=== PATIENT | male | born 1960 ===

== ENCOUNTER 2017-03-21 10:23 | Observation (INO) | payer MEDICARE, MEDICAID ==
[2017-03-21 11:25] LABS: ADD MANUAL DIFF? NO
[2017-03-21 11:28] LABS: BASO # 0.01 K/mm3 (0.0-2.0); BASO % 0.3 % (0.0-3.0); EOS # 0.1 (0.0-0.7); EOS % 4.3 % (1.5-5.0); GRAN # 2.13 (1.4-6.5); GRAN % 65.1 % (50.0-68.0); HEMATOCRIT 24.3 % (42.0-52.0); LYMPH # 0.7 (1.2-3.4); LYMPH % 21.7 % (22.0-35.0); MEAN CORPUSCULAR HEMOGLOBIN 30.4 pg (25.0-35.0); MEAN CORPUSCULAR HGB CONC 33.7 g/dl (31.0-37.0); MEAN PLATELET VOLUME 11.4 fl (7.0-11.0); MONO # 0.3 (0.1-0.6); MONO % 8.6 % (1.0-6.0); PLATELET COUNT 48 10^3/uL (120.0-450.0); RED CELL DISTRIBUTION WIDTH 15.3 % (11.5-14.5); WHITE BLOOD COUNT 3.3 10^3/ul (4.5-11.0)
--- NOTE | 2017-03-21 11:32 | ED PDOC ---
Arrival/HPI - General Chief Complaint: Lower Extremity Problem/Injury Time Seen by Provider: 03/21/17 10:24 Historian: Other (daughter) - History of Present Illness Narrative History of Present Illness (Text): 03/21/17 11:30 A 57 year old male, whose past medical history includes hypertension and lower extremity swelling (Lasix), presents to the emergency department complaining of bilateral lower extremity swelling. Patient's daughter, historian, reports that patient's legs have been swollen more than usual in the past month. Patient also notes complaining of slight dyspnea on exertion. Patient denies any shortness of breath, chest pain or any other complaints at this time. Time/Duration: Other (month) Symptom Onset: Sudden Symptom Course: Unchanged Quality: Other (swelling) Activities at Onset: Rest Modifying Factors (Text): none Context: Home Associated Symptoms (Text): dyspnea on exertion Past Medical History - Provider Review Nursing Documentation Reviewed: Yes - Gastrointestinal Other/Comment: liver problem - Psychiatric Hx Substance Use: No Family/Social History - Physician Review Nursing Documentation Reviewed: Yes Family/Social History: No Known Family HX Smoking Status: Unknown If Ever Smoked Hx Alcohol Use: Yes Frequency of alcohol use: Socially Hx Substance Use: No Allergies/Home Meds Allergies/Adverse Reactions: Allergies No Known Allergies Allergy (Verified 03/21/17 10:38) Home Medications: Home Meds Medication Instructions Recorded Confirmed Furosemide [Lasix] 40 mg PO DAILY 03/21/17 03/21/17 Review of Systems - Physician Review All systems were reviewed & negative as marked: Yes Physical Exam - Physical Exam Narrative Physical Exam (Text): 03/21/17 12:27- Review of Systems Constitutional: Normal. absent: Fatigue, Weight Change, Fevers Eyes: Normal ENT: Normal Respiratory: Normal absent: SOB, Cough, Sputum Cardiovascular: Present: dyspnea on exertion absent: Chest pain, Palpitations, Syncope Gastrointestinal: Normal absent: Abdominal pain, Diarrhea, Nausea, Vomiting Genitourinary: Normal. absent: Dysuria, Frequency, Hematuria Musculoskeletal: Present: Lower extremity swelling absent: Arthralgias, Back Pain, Neck Pain Skin: Normal Neurological: Normal absent: Focal Weakness Endocrine: Normal Hemo/Lymphatic: Normal Psychiatric: Normal - Physical exam Patient appears age appropriate, speaking full sentences without difficulty - Systems Exam Head: Present: Atraumatic, Normocephalic Pupils: Present: PERRL Extraocular Muscles: Present: EOMI Conjunctiva: Present: Normal Mouth: Present: Moist Mucous Membranes Neck: Present: Normal Range of Motion. No: MIDLINE TENDERNESS, Paraspinal Tenderness Respiratory/Chest: Present: Clear to Auscultation, Good Air Exchange. No: Respiratory Distress, Accessory Muscle Use, Tachypneic Cardiovascular: Present: Regular Rate and Rhythm, Normal S1, S2, Peripheral Pulses Present. No: Murmurs Abdomen: Present: Normal Bowel Sounds, No: Tenderness, Peritoneal Signs, Rebound, Guarding, Distention Back: Present: Normal Inspection. No: Midline Tenderness, Paraspinal Tenderness Upper Extremity: Present: Normal Inspection. No: Cyanosis, Edema Lower Extremity: Present: pitting edema bilaterally Neurological: Present: GCS=15, Speech Normal, cranial nerves II through XII fully intact with no cerebellar abnormality, neuro-sensory fully intact. No focal neurological deficits. Skin: Present: Warm, Dry, Normal Color. No: Rashes Lymphatic: Present: OX3, NI, NC Psychiatric: Present: Alert, Oriented x 3, Normal Insight, Normal Concentration Vital Signs Reviewed: Yes Vital Signs Temp Pulse Resp BP Pulse Ox 03/21/17 12:23 88 18 127/63 100 03/21/17 10:33 98.8 F 88 20 126/71 99 Temperature: Afebrile Blood Pressure: Normal Pulse: Regular Respiratory Rate: Normal Appearance: Positive for: Well-Appearing, Non-Toxic, Comfortable Pain Distress: None Mental Status: Positive for: Alert and Oriented X 3 Medical Decision Making ED Course and Treatment: 03/21/17 11:31 Impression: A 57 year old male with lower extremity swelling and slight dyspnea on exertion. On physical exam, lower extremity pitting edema bilaterally. Differential Diagnosis include but are not limited to: liver disease vs. renal dysfunction vs. CHF vs. peripheral vascular disease vs. DVT Plan: -- EKG -- chest xray -- US lower extremity vein bilat -- Urinalysis -- labs -- Reassess and disposition Progress Notes: EKG: Ordered, reviewed, and independently interpreted the EKG. Rate : BPM Rhythm : NSR Interpretation : No ST-segment elevations or depressions, no T-wave inversions, normal intervals. Comparison : No previous EKG for comparison. Chest xray: Cardiomegaly, no obvious infiltrates or effusions. Interpreted by me. US lower extremity: Negative for DVT bilaterally as per preliminary career technical counselor result 03/21/17 13:23 Patient's INR elevated, not any anticoagulate. Patients daughter reports that patient has a history of alcohol use in the past. Patient's hemoglobin and platelets also low. No indication for acute transfusion at this time Patient agrees to be admitted into the hospital for further workup Discussed with and signed out to Dr. Lobo Patient's daughter translating encounter without difficulty. - Lab Interpretations Lab Results: 03/21/17 11:20 03/21/17 11:20 Lab Results 03/21/17 11:20: Sodium 133, Potassium 3.4 L, Chloride 98, Carbon Dioxide 30, Anion Gap 8 L, BUN 10, Creatinine 0.8, Est GFR ( Amer) > 60, Est GFR (Non -Af Amer) > 60, Random Glucose 110, Calcium 7.6 L, Total Bilirubin 3.6 H, AST 54 , ALT 35, Alkaline Phosphatase 87, NT-Pro-B Natriuret Pep 297, Total Protein 7.6 , Albumin 2.2 L, Globulin 5.3, Albumin/Globulin Ratio 0.4 L 03/21/17 11:20: PT 19.2 H, INR 1.78 H, APTT 34.9 H 03/21/17 11:20: WBC 3.3 L, RBC 2.70 L, Hgb 8.2 L, Hct 24.3 L, MCV 90.0, MCH 30.4 , MCHC 33.7, RDW 15.3 H, Plt Count 48 L*, MPV 11.4 H, Gran % 65.1, Lymph % (Auto ) 21.7 L, Vernon % (Auto) 8.6 H, Eos % (Auto) 4.3, Baso % (Auto) 0.3, Gran # 2.13 , Lymph # 0.7 L, Vernon # 0.3, Eos # 0.1, Baso # 0.01 I have reviewed the lab results: Yes - RAD Interpretation Radiology Orders: 03/21/17 10:54 CHEST PORTABLE [RAD] Stat DUPLEX LOWER EXTRM VEIN BILAT [US] Stat - EKG Interpretation Interpreted by ED Physician: Yes Type: 12 lead EKG - Scribe Statement The provider has reviewed the documentation as recorded by the Scribe Bebeto Carl All medical record entries made by the Scribe were at my direction and personally dictated by me. I have reviewed the chart and agree that the record accurately reflects my personal performance of the history, physical exam, medical decision making, and the department course for this patient. I have also personally directed, reviewed, and agree with the discharge instructions and disposition. Disposition/Present on Arrival - Present on Arrival Any Indicators Present on Arrival: No History of DVT/PE: No History of Uncontrolled Diabetes: No Urinary Catheter: No History of Decub. Ulcer: No History Surgical Site Infection Following: None - Disposition Have Diagnosis and Disposition been Completed?: Yes Diagnosis: Anemia, Thrombocytopenia, Coagulopathy Disposition: HOSPITALIZED Disposition Time: 13:25 Patient Plan: Admission Condition: FAIR
[2017-03-21 11:38] LABS: ALB/GLOB RATIO 0.4 (1.1-1.8); ALKALINE PHOSPHATASE 87 U/L (38-133); ALT/SGPT 35 U/L (7-56); AST/SGOT 54 U/L (15-59); BILIRUBIN,TOTAL 3.6 mg/dL (0.2-1.3); BLOOD UREA NITROGEN 10 mg/dL (7-21); CALCIUM 7.6 mg/dL (8.4-10.5); CARBON DIOXIDE 30 mmol/L (21-33); CHLORIDE 98 mmol/L (98-107); GFR AFRICAN-AMERICAN > 60; GLUCOSE,RANDOM 110 mg/dL (70-110); INR 1.78 (0.93-1.08); PARTIAL THROMBOPLASTIN TIME 34.9 Seconds (23.7-30.8); POTASSIUM 3.4 mmol/L (3.6-5.0); SODIUM 133 mmol/L (132-148); TOTAL PROTEIN 7.6 g/dL (5.8-8.3)
--- NOTE | 2017-03-21 13:31 | RAD ---
HISTORY: cough COMPARISON: No prior. FINDINGS: LUNGS: No active pulmonary disease. PLEURA: No significant pleural effusion identified, no pneumothorax apparent. CARDIOVASCULAR: Normal. OSSEOUS STRUCTURES: No significant abnormalities. VISUALIZED UPPER ABDOMEN: Normal. OTHER FINDINGS: None. IMPRESSION: No active disease.
[2017-03-21] MEDS ORDERED: Potassium Chloride 20 mEq ER Tab PO STA (14:06)
--- NOTE | 2017-03-21 14:29 | US ---
HISTORY: r/o cirrhosis COMPARISON: None. TECHNIQUE: Grayscale imaging was performed. FINDINGS: LIVER: Measures 18.7 cm. There is mild diffuse increased echogenicity in the liver parenchyma and nodular contour. . No mass. No intrahepatic bile duct dilatation. GALLBLADDER: There are multiple gallstones. No wall thickening, pericholecystic fluid or positive sonographic Sue's sign. COMMON BILE DUCT: Measures 5.2 mm. No stones. No dilatation. PANCREAS: Obscured by excessive bowel gas. RIGHT KIDNEY: Measures 9.8cm. Normal echogenicity. No calculus, mass, or hydronephrosis. LEFT KIDNEY: Measures 11.6cm. Normal echogenicity. No calculus, mass, or hydronephrosis. SPLEEN: There is severe splenomegaly. The spleen measures 18.3 cm. AORTA: No aneurysmal dilatation. IVC: Unremarkable. OTHER FINDINGS: There is moderate perihepatic ascites. IMPRESSION: Cirrhosis of liver, severe splenomegaly and moderate perihepatic ascites. Cholelithiasis.
--- NOTE | 2017-03-21 14:43 | CP.PCM.HP ---
<LizBlanco - Last Filed: 03/21/17 14:33> History of Present Illness - History of Present Illness History of Present Illness: 57 M with pmh of ETOH abuse presents with b/l leg swelling. History taken from patient with her daughter at bedside. Patient states that his leg swelling first started 2 years ago. He states that at the time he was also diagnose with some type of liver disease. Now in the past 1.5-2 months he states that his leg swelling as gotten progressively worse. He admits to being short of breath on exertion but states that he is still able to walk a few blocks with out being short of breath. Patient also c/o some abdominal pain that has been going on for the past few weeks. Pt also c/o nose bleeds that has been going on at nights for the past 6 weeks. He denies any nausea, vomiting or diarrhea. He denies any chest pain or palpitations at this time. He denies any headaches, dizziness, visual changes, f/c, sob, cp, urinary or bm changes. PMH: ETOH abuse, liver disease? PSH: denies All: NKA Med: Lasix 40mg PO daily SH: Denies smoking, denies drugs, admits to drinking heavily, states that he slowed down starting 2 years ago and has completely stoped once his symptoms started 2 months ago. FH: HTN runs in the family Present on Admission - Present on Admission Any Indicators Present on Admission: No Review of Systems - Review of Systems All systems: reviewed and no additional remarkable complaints except (HPI) Past Patient History - Past Social History Smoking Status: Never Smoked Alcohol: > 2 Drinks/Day Drugs: Denies - GASTROINTESTINAL Other/Comment: liver problem - PSYCHIATRIC Hx Substance Use: No Meds Allergies/Adverse Reactions: Allergies Allergy/AdvReac Type Severity Reaction Status Date / Time No Known Allergies Allergy Verified 03/21/17 10:38 Physical Exam - Constitutional Appears: No Acute Distress - Head Exam Head Exam: ATRAUMATIC, NORMAL INSPECTION, NORMOCEPHALIC - Eye Exam Eye Exam: Conjunctival injection - ENT Exam ENT Exam: Mucous Membranes Moist, Normal Exam - Respiratory Exam Respiratory Exam: Clear to Auscultation Bilateral, NORMAL BREATHING PATTERN. absent: Rales, Wheezes - Cardiovascular Exam Cardiovascular Exam: REGULAR RHYTHM, RRR, +S1, +S2 - GI/Abdominal Exam GI & Abdominal Exam: Distended (Mild ), Soft. absent: Tenderness - Extremities Exam Extremities exam: Positive for: pedal edema (3+ pitting edema in b/l lower ext ) . Negative for: calf tenderness - Back Exam Back exam: absent: vertebral tenderness - Neurological Exam Neurological exam: Alert, Normal Gait, Oriented x3 - Psychiatric Exam Psychiatric exam: Normal Affect, Normal Mood - Skin Skin Exam: Dry, Intact, Normal Color, Warm Results - Vital Signs Recent Vital Signs: Last Vital Signs Temp 98.8 F 03/21/17 10:33 Pulse 88 03/21/17 12:23 Resp 18 03/21/17 12:23 BP 127/63 03/21/17 12:23 Pulse Ox 100 03/21/17 12:23 - Labs Result Diagrams: 03/21/17 11:20 03/21/17 11:20 Labs: Laboratory Results - last 24 hr 03/21/17 03/21/17 03/21/17 11:20 11:20 11:20 WBC 3.3 L RBC 2.70 L Hgb 8.2 L Hct 24.3 L MCV 90.0 MCH 30.4 MCHC 33.7 RDW 15.3 H Plt Count 48 L* MPV 11.4 H Gran % 65.1 Lymph % (Auto) 21.7 L Sharp % (Auto) 8.6 H Eos % (Auto) 4.3 Baso % (Auto) 0.3 Gran # 2.13 Lymph # 0.7 L Sharp # 0.3 Eos # 0.1 Baso # 0.01 PT 19.2 H INR 1.78 H APTT 34.9 H Sodium 133 Potassium 3.4 L Chloride 98 Carbon Dioxide 30 Anion Gap 8 L BUN 10 Creatinine 0.8 Est GFR ( Amer) > 60 Est GFR (Non-Af Amer) > 60 Random Glucose 110 Calcium 7.6 L Total Bilirubin 3.6 H AST 54 ALT 35 Alkaline Phosphatase 87 NT-Pro-B Natriuret Pep 297 Total Protein 7.6 Albumin 2.2 L Globulin 5.3 Albumin/Globulin Ratio 0.4 L Assessment & Plan - Assessment and Plan (Free Text) Assessment: 57 M with pmh significant for of ETOH abuse presents with b/l leg swelling likely 2/2 Liver failure vs unlikely cardiac related. 1. B/l Leg edema 2/2 Liver failure - INR 1.78, PT 19.2, PTT 34.9; Platelet of 44, T bili 3.6, Albumin 2.2 - Pro BNP normal 297 - Lasix 40mg IVP BID - F/u ext US - F/u Abdominal US - F/u Echo - F/u GI consult - Dr Russo for recs - Daily CBC, CBC, INR - F/u hepatitis and HIV profile - F/u Urine drug screen 2. Hypokalemia - K is 3.4 - KCl 40mg PO ordered - Will replete as needed 3. Anemia - H/H 8.2/24.3 no active bleeding - No transfusion indicated at this time - F/u anemia work up of Iron, TIBC, Ferritin, Folate, and Vit B12 4. GI/DVT ppx - Pepcid and SCDs Case and plan was seen reviewed and discussed in detail with Dr Lobo. <Jose Lobo - Last Filed: 03/22/17 14:31> Results - Vital Signs Recent Vital Signs: Last Vital Signs Temp 98 F 03/22/17 07:46 Pulse 89 03/22/17 07:46 Resp 20 03/22/17 07:46 BP 120/60 03/22/17 09:18 Pulse Ox 98 03/22/17 07:46 - Labs Result Diagrams: 03/22/17 06:30 03/22/17 06:30 Labs: Laboratory Results - last 24 hr 03/21/17 03/21/17 03/21/17 15:00 15:00 15:00 WBC RBC Hgb Hct MCV MCH MCHC RDW Plt Count Manual Plt Count MPV Gran % Lymph % (Auto) Sharp % (Auto) Eos % (Auto) Baso % (Auto) Gran # Lymph # Sharp # Eos # Baso # PT INR Sodium Potassium Chloride Carbon Dioxide Anion Gap BUN Creatinine Est GFR ( Amer) Est GFR (Non-Af Amer) Random Glucose Calcium Iron 96 TIBC 251 L % Saturation 38 Ferritin Total Bilirubin AST ALT Alkaline Phosphatase Total Protein Albumin Globulin Albumin/Globulin Ratio Vitamin B12 Folate Urine Color Urine Appearance Urine pH Ur Specific [place] Urine Protein Urine Glucose (UA) Urine Ketones Urine Blood Urine Nitrate Urine Bilirubin Urine Urobilinogen Ur Leukocyte Esterase Urine RBC Urine WBC Ur Epithelial Cells Urine Bacteria Stool Occult Blood Urine Opiates Screen Urine Methadone Screen Ur Barbiturates Screen Ur Phencyclidine Scrn Ur Amphetamines Screen U Benzodiazepines Scrn U Oth Cocaine Metabols U Cannabinoids Screen Hepatitis A IgM Ab Negative Hep Bs Antigen Negative Hep B Core IgM Ab Negative Hepatitis C Antibody Negative HIV 1&2 Ag/Ab, 4th Gen Nonreactive Blood Type Blood Type Confirm Antibody Screen BBK History Checked 03/21/17 03/21/17 03/22/17 15:00 15:20 06:30 WBC 2.7 L* RBC 2.66 L Hgb 8.1 L Hct 24.1 L MCV 90.6 MCH 30.5 MCHC 33.6 RDW 15.2 H Plt Count 43 L* Manual Plt Count MPV 10.0 Gran % 64.9 Lymph % (Auto) 23.3 Sharp % (Auto) 8.1 H Eos % (Auto) 3.7 Baso % (Auto) 0.0 Gran # 1.75 Lymph # 0.6 L Sharp # 0.2 Eos # 0.1 Baso # 0.00 PT INR Sodium Potassium Chloride Carbon Dioxide Anion Gap BUN Creatinine Est GFR ( Amer) Est GFR (Non-Af Amer) Random Glucose Calcium Iron TIBC % Saturation Ferritin 311.0 Total Bilirubin AST ALT Alkaline Phosphatase Total Protein Albumin Globulin Albumin/Globulin Ratio Vitamin B12 845 Folate 10.5 Urine Color Yellow Urine Appearance Clear Urine pH 6.0 Ur Specific [place] 1.020 Urine Protein Negative Urine Glucose (UA) Negative Urine Ketones Negative Urine Blood Large H Urine Nitrate Negative Urine Bilirubin Negative Urine Urobilinogen 2.0 H Ur Leukocyte Esterase Negative Urine RBC 15 - 20 Urine WBC 0 - 2 Ur Epithelial Cells 0 - 2 Urine Bacteria Small Stool Occult Blood Urine Opiates Screen Urine Methadone Screen Ur Barbiturates Screen Ur Phencyclidine Scrn Ur Amphetamines Screen U Benzodiazepines Scrn U Oth Cocaine Metabols U Cannabinoids Screen Hepatitis A IgM Ab Hep Bs Antigen Hep B Core IgM Ab Hepatitis C Antibody HIV 1&2 Ag/Ab, 4th Gen Blood Type Blood Type Confirm Antibody Screen BBK History Checked 03/22/17 03/22/17 03/22/17 06:30 06:30 06:30 WBC RBC Hgb Hct MCV MCH MCHC RDW Plt Count Manual Plt Count 60 L* MPV Gran % Lymph % (Auto) Sharp % (Auto) Eos % (Auto) Baso % (Auto) Gran # Lymph # Sharp # Eos # Baso # PT 19.4 H INR 1.80 H Sodium 137 Potassium 3.4 L Chloride 102 Carbon Dioxide 30 Anion Gap 8 L BUN 10 Creatinine 0.8 Est GFR ( Amer) > 60 Est GFR (Non-Af Amer) > 60 Random Glucose 84 Calcium 7.3 L Iron TIBC % Saturation Ferritin Total Bilirubin 3.6 H AST 55 ALT 38 Alkaline Phosphatase 84 Total Protein 7.0 Albumin 2.1 L Globulin 4.9 Albumin/Globulin Ratio 0.4 L Vitamin B12 Folate Urine Color Urine Appearance Urine pH Ur Specific [place] Urine Protein Urine Glucose (UA) Urine Ketones Urine Blood Urine Nitrate Urine Bilirubin Urine Urobilinogen Ur Leukocyte Esterase Urine RBC Urine WBC Ur Epithelial Cells Urine Bacteria Stool Occult Blood Urine Opiates Screen Urine Methadone Screen Ur Barbiturates Screen Ur Phencyclidine Scrn Ur Amphetamines Screen U Benzodiazepines Scrn U Oth Cocaine Metabols U Cannabinoids Screen Hepatitis A IgM Ab Hep Bs Antigen Hep B Core IgM Ab Hepatitis C Antibody HIV 1&2 Ag/Ab, 4th Gen Blood Type Blood Type Confirm Antibody Screen BBK History Checked 03/22/17 03/22/17 03/22/17 09:00 10:53 10:56 WBC RBC Hgb Hct MCV MCH MCHC RDW Plt Count Manual Plt Count MPV Gran % Lymph % (Auto) Sharp % (Auto) Eos % (Auto) Baso % (Auto) Gran # Lymph # Sharp # Eos # Baso # PT INR Sodium Potassium Chloride Carbon Dioxide Anion Gap BUN Creatinine Est GFR ( Amer) Est GFR (Non-Af Amer) Random Glucose Calcium Iron TIBC % Saturation Ferritin Total Bilirubin AST ALT Alkaline Phosphatase Total Protein Albumin Globulin Albumin/Globulin Ratio Vitamin B12 Folate Urine Color Urine Appearance Urine pH Ur Specific [place] Urine Protein Urine Glucose (UA) Urine Ketones Urine Blood Urine Nitrate Urine Bilirubin Urine Urobilinogen Ur Leukocyte Esterase Urine RBC Urine WBC Ur Epithelial Cells Urine Bacteria Stool Occult Blood Positive H Urine Opiates Screen Negative Urine Methadone Screen Negative Ur Barbiturates Screen Negative Ur Phencyclidine Scrn Negative Ur Amphetamines Screen Negative U Benzodiazepines Scrn Negative U Oth Cocaine Metabols Negative U Cannabinoids Screen Negative Hepatitis A IgM Ab Hep Bs Antigen Hep B Core IgM Ab Hepatitis C Antibody HIV 1&2 Ag/Ab, 4th Gen Blood Type A POSITIVE Blood Type Confirm Antibody Screen Negative BBK History Checked No verified bt 03/22/17 12:49 WBC RBC Hgb Hct MCV MCH MCHC RDW Plt Count Manual Plt Count MPV Gran % Lymph % (Auto) Sharp % (Auto) Eos % (Auto) Baso % (Auto) Gran # Lymph # Sharp # Eos # Baso # PT INR Sodium Potassium Chloride Carbon Dioxide Anion Gap BUN Creatinine Est GFR ( Amer) Est GFR (Non-Af Amer) Random Glucose Calcium Iron TIBC % Saturation Ferritin Total Bilirubin AST ALT Alkaline Phosphatase Total Protein Albumin Globulin Albumin/Globulin Ratio Vitamin B12 Folate Urine Color Urine Appearance Urine pH Ur Specific [place] Urine Protein Urine Glucose (UA) Urine Ketones Urine Blood Urine Nitrate Urine Bilirubin Urine Urobilinogen Ur Leukocyte Esterase Urine RBC Urine WBC Ur Epithelial Cells Urine Bacteria Stool Occult Blood Urine Opiates Screen Urine Methadone Screen Ur Barbiturates Screen Ur Phencyclidine Scrn Ur Amphetamines Screen U Benzodiazepines Scrn U Oth Cocaine Metabols U Cannabinoids Screen Hepatitis A IgM Ab Hep Bs Antigen Hep B Core IgM Ab Hepatitis C Antibody HIV 1&2 Ag/Ab, 4th Gen Blood Type Blood Type Confirm A POSITIVE Antibody Screen BBK History Checked Attending/Attestation - Attestation I have personally seen and examined this patient.: Yes I have fully participated in the care of the patient.: Yes I have reviewed all pertinent clinical information: Yes Notes (Text): 03/22/17 14:27 Attending note; Patient seen and examined with resident in ER. Patient's daughter giving history. Patient is a 57 year old male with pmh of ETOH abuse,, liver problem presents with b/l leg swelling. Patient states that his leg swelling first started 2 years ago. At that time he was diagnosed with alcoholic liver disease. He stopped alcohol abuse for few months. Started using alcohol again. Denies any other history. CBC consistent with pancytopenia and elevated coagulation profile suggesting cirrhosis. Abdominal ultrasound ordered. GI evaluation requested. Thrombocytopenia; monitor for bleeding. Patient had episode of epistaxis. Currently no bleeding. Lower extremity Doppler is negative for DVT. Complete alcohol cessation is strongly advised. Does not follow up with any PMD now. Seen by computer sciences professor once and got prescription for Lasix. Currently not taking it regularly. Patient is strongly advised to follow-up with [facility] liver transplant clinic. Needs complete alcohol cessation. The diagnosis, treatment plan discussed with patient's daughter in detail.
--- NOTE | 2017-03-21 15:45 | US ---
HISTORY: Leg pain and swelling. Evaluate for DVT PHYSICIAN(S): Nathanael Harris MD. TECHNIQUE: Duplex sonography and color-flow Doppler with graded compression were used to evaluate the deep venous systems of both lower extremities. The exam is limited by body habitus and edema. FINDINGS: The visualized deep venous systems of both lower extremities are sonographically normal and compressible. Normal wave forms and augmentation are seen. There is no sonographic evidence for deep venous thrombosis in the visualized segments of both lower extremities. IMPRESSION: No sonographic evidence for deep venous thrombosis in the visualized segments of both lower extremities.
[2017-03-21 15:57] LABS: IRON 96 ug/dL (45-180)
[2017-03-21 15:58] LABS: URINE BILIRUBIN NEGATIVE (NEGATIVE); URINE BLOOD LARGE (NEGATIVE); URINE GLUCOSE (UA) NEGATIVE (NEGATIVE); URINE KETONE NEGATIVE (NEGATIVE); URINE LEUKOCYTE ESTERASE NEGATIVE Leu/uL (NEGATIVE); URINE PROTEIN NEGATIVE mg/dL (<30 mg/dL)
[2017-03-21 15:59] LABS: URINE APPEARANCE CLEAR (CLEAR); URINE COLOR YELLOW (YELLOW)
[2017-03-21 16:14] LABS: URINE BACTERIA SMALL (NEG); URINE EPITHELIAL CELLS 0 - 2 /hpf (0-5); URINE RBC 15 - 20 /hpf (0-2); URINE WBC 0 - 2 /hpf (0-6)
[2017-03-21 17:56] VITALS: BMI 34.9
[2017-03-21] MEDS ORDERED: guaiFENesin DM 100 mg-10 mg/5 ml UD PO PRN (19:29)
--- NOTE | 2017-03-21 20:58 | CARD ---
APPROVED REPORT EKG Measurement Heart [id number] <Conclusion> Normal sinus rhythm Prolonged QT Abnormal ECG
[2017-03-21 22:28] LABS: FOLATE 10.5 ng/mL
[2017-03-22] MEDS ORDERED: Pantoprazole 40 mg EC Tab PO SCH (06:30)
[2017-03-22 07:18] LABS: ALB/GLOB RATIO 0.4 (1.1-1.8); ALKALINE PHOSPHATASE 84 U/L (38-133); ALT/SGPT 38 U/L (7-56); AST/SGOT 55 U/L (15-59); BILIRUBIN,TOTAL 3.6 mg/dL (0.2-1.3); BLOOD UREA NITROGEN 10 mg/dL (7-21); CALCIUM 7.3 mg/dL (8.4-10.5); CARBON DIOXIDE 30 mmol/L (21-33); CHLORIDE 102 mmol/L (98-107); EOS # 0.1 (0.0-0.7); EOS % 3.7 % (1.5-5.0); GFR AFRICAN-AMERICAN > 60; GLUCOSE,RANDOM 84 mg/dL (70-110); GRAN # 1.75 (1.4-6.5); GRAN % 64.9 % (50.0-68.0); HEMATOCRIT 24.1 % (42.0-52.0); INR 1.8 (0.93-1.08); LYMPH # 0.6 (1.2-3.4); LYMPH % 23.3 % (22.0-35.0); MEAN CELL VOLUME 90.6 fL (80.0-105.0); MEAN CORPUSCULAR HEMOGLOBIN 30.5 pg (25.0-35.0); MEAN CORPUSCULAR HGB CONC 33.6 g/dl (31.0-37.0); MONO # 0.2 (0.1-0.6); MONO % 8.1 % (1.0-6.0); PLATELET COUNT 43 10^3/uL (120.0-450.0); POTASSIUM 3.4 mmol/L (3.6-5.0); RED CELL DISTRIBUTION WIDTH 15.2 % (11.5-14.5); SODIUM 137 mmol/L (132-148)
[2017-03-22 07:42] LABS: ADD MANUAL DIFF? NO
[2017-03-22 08:32] LABS: WHITE BLOOD COUNT 2.7 10^3/ul (4.5-11.0)
[2017-03-22] MEDS ORDERED: Potassium Chloride 40 mEq/30 ml LIQ UD PO ONE (09:23)
--- NOTE | 2017-03-22 13:54 | CP.PCM.PN ---
<[place] - Last Filed: 03/22/17 13:51> Subjective - Date & Time of Evaluation Date of Evaluation: 03/22/17 Time of Evaluation: 07:30 - Subjective Subjective: Hospitalist progress note: Pt seen and examined at bedside. No acute events overnight. Pt states that his leg edema is mildly better. Pt c/o of a bright red blood per rectum when he moved his bowels last night. He also c/o one episode of bleeding fro his nose. Denies any abd pain, nausea or vomiting. Denies any headaches, dizziness, f/c, sob, cp, urinary or bm changes. Objective - Vital Signs/Intake and Output Vital Signs (last 24 hours): Temp Pulse Resp BP Pulse Ox 98 F 89 20 120/60 98 03/22/17 07:46 03/22/17 07:46 03/22/17 07:46 03/22/17 09:18 03/22/17 07:46 Intake and Output: 03/22/17 03/22/17 06:59 18:59 Intake Total 420 Balance 420 - Medications Medications: Current Medications Famotidine (Pepcid) 40 mg PO HS [facility] Last Admin: 03/21/17 21:35 Dose: 40 mg Furosemide (Lasix) 60 mg IVP Q12 [facility] Guaifenesin/Dextromethorphan (Robitussin Dm) 5 ml PO Q4H PRN PRN Reason: Cough Spironolactone (Aldactone) 50 mg PO BID [facility] Last Admin: 03/22/17 12:07 Dose: 50 mg - Labs Labs: 03/22/17 06:30 03/22/17 06:30 PT 19.4 Seconds (9.9-11.8) H 03/22/17 06:30 INR 1.80 (0.93-1.08) H 03/22/17 06:30 APTT 34.9 Seconds (23.7-30.8) H 03/21/17 11:20 - Constitutional Appears: No Acute Distress - Head Exam Head Exam: ATRAUMATIC, NORMAL INSPECTION, NORMOCEPHALIC - Eye Exam Eye Exam: EOMI, Normal appearance, PERRL - ENT Exam ENT Exam: Mucous Membranes Moist, Normal Exam - Respiratory Exam Respiratory Exam: Clear to Ausculation Bilateral, NORMAL BREATHING PATTERN. absent: Rales, Wheezes - Cardiovascular Exam Cardiovascular Exam: REGULAR RHYTHM, RRR, +S1, +S2. absent: Murmur - GI/Abdominal Exam GI & Abdominal Exam: Soft. absent: Distended, Tenderness - Rectal Exam Rectal Exam: NORMAL INSPECTION (FOBT sent, enlarged prostate ) - Extremities Exam Extremities Exam: Pedal Edema (3+). absent: Calf Tenderness - Back Exam Back Exam: NORMAL INSPECTION - Neurological Exam Neurological Exam: Alert, Awake, Oriented x3 - Psychiatric Exam Psychiatric exam: Normal Affect, Normal Mood - Skin Skin Exam: Dry, Intact, Normal Color, Warm Assessment and Plan - Assessment and Plan (Free Text) Assessment: 57 M with pmh significant for of ETOH abuse presents with b/l leg swelling likely 2/2 Liver failure vs unlikely cardiac related. 1. B/l Leg edema 2/2 Liver failure - INR 1.8, PT 19.4, Platelet of 43, T bili 3.6, Albumin 2.1 - Pro BNP normal 297 - Lasix 40mg IVP BID increased to Lasix 60mg IVP BID - Added Aldactone 50mg BID - Ext US - negative - Abdominal US - cirrhosis of liver, severe splenomegally, mod perihepatic ascites, cholethiasis - F/u Echo - F/u GI consult - Dr Russo for recs - Daily CBC, CBC, INR - Hepatitis - panel negative - F/u HIV profile - MELD score of 18 with 6% estimated 3 month mortality - Discrimination factor: 42.2 - pt may benefit from Glucocorticoid therapy 2. Pancytopenia - Type and cross - 1 unit of platelets ordered due to active bleeding of nose and BRB per rectum - Manual platelet count of 60 - Consulted heme Dr Mata for recs 3. Hypokalemia - K is 3.4 - KCl 40mg PO ordered - Will replete as needed 4. Anemia - H/H 8.1/24.1 no active bleeding - No transfusion indicated at this time - F/u anemia work up of Iron, TIBC, Ferritin, Folate, and Vit B12 5. GI/DVT ppx - Pepcid and SCDs Case and plan was seen reviewed and discussed in detail with Dr Lobo. <Jose Lobo - Last Filed: 03/22/17 15:17> Objective - Vital Signs/Intake and Output Vital Signs (last 24 hours): Temp Pulse Resp BP Pulse Ox 98 F 89 20 120/60 98 03/22/17 07:46 03/22/17 07:46 03/22/17 07:46 03/22/17 09:18 03/22/17 07:46 Intake and Output: 03/22/17 03/22/17 06:59 18:59 Intake Total 420 600 Balance 420 600 - Medications Medications: Current Medications Famotidine (Pepcid) 40 mg PO HS [facility] Last Admin: 03/21/17 21:35 Dose: 40 mg Furosemide (Lasix) 60 mg IVP Q12 [facility] Guaifenesin/Dextromethorphan (Robitussin Dm) 5 ml PO Q4H PRN PRN Reason: Cough Spironolactone (Aldactone) 50 mg PO BID [facility] Last Admin: 03/22/17 12:07 Dose: 50 mg - Labs Labs: 03/22/17 06:30 03/22/17 06:30 PT 19.4 Seconds (9.9-11.8) H 03/22/17 06:30 INR 1.80 (0.93-1.08) H 03/22/17 06:30 APTT 34.9 Seconds (23.7-30.8) H 03/21/17 11:20 Attending/Attestation - Attestation I have personally seen and examined this patient.: Yes I have fully participated in the care of the patient.: Yes I have reviewed all pertinent clinical information, including history, physical exam and plan: Yes Notes (Text): 03/22/17 15:15 Attending note; Patient seen and examined with resident in ER. Patient is a 57 year old male with pmh of ETOH abuse,, liver problem presents with b/l leg swelling secondary to advanced alcoholic cirrhosis. Started on Lasix and Aldactone. CBC consistent with pancytopenia and elevated coagulation profile suggesting cirrhosis. Abdominal ultrasound showed cirrhosis and splenomegaly and moderate perihepatic ascites. Hepatitis profile is negative. GI evaluation requested. Thrombocytopenia; Patient had episode of epistaxis. 1 unit of platelet transfusion ordered. Lower extremity Doppler is negative for DVT. Complete alcohol cessation is strongly advised. Patient is strongly advised to follow-up with [facility] liver transplant clinic. The diagnosis, treatment plan discussed with patient's daughter in detail.
--- NOTE | 2017-03-22 16:25 | CARD ---
APPROVED REPORT EXAM: Two-dimensional and M-mode echocardiogram with Doppler and color Doppler. INDICATION Palpitations 2D DIMENSIONS IVSd0.9 (0.7-1.1cm)LVDd5.4 (3.9-5.9cm) PWd1.0 (0.7-1.1cm)LVDs3.8 (2.5-4.0cm) FS (%) 29.4 %LVEF (%)56.0 (>50%) M-Mode DIMENSIONS Aortic Root2.90 (2.2-3.7cm)Aortic Cusp Exc.2.00 (1.5-2.0cm) Aortic Valve AoV Peak Beqsiows849.0cm/sAoV VTI52.4cmAO Peak GR.25mmHg LVOT Peak Tjdhjhnc902.0cm/sLVOT VTI33.20cmAO Mean GR.13mmHg Mitral Valve MV E Eoekluhm130.0cm/sMV A Wfhmxzgw571.0cm/sE/A ratio1.3 TDI Lateral E' Peak V16.30cm/sMedial E' Peak V12.10cm/sE/Lateral E'8.3 E/Medial E'11.2 Pulmonary Valve PV Peak Hmrocbdf119.0cm/sPV Peak Grad.8mmHg Tricuspid Valve TR Peak Dwjhzwig771qm/sRAP ELAPSMDZ53eyDsZI Peak Gr.50mmHg HRYJ77rcGo LEFT VENTRICLE The left ventricle is normal size. There is normal left ventricular wall thickness. The left ventricular function is normal. The left ventricular ejection fraction is within the normal range. There is normal LV segmental wall motion. The left ventricular diastolic function is normal. RIGHT VENTRICLE The right ventricle is normal size. There is normal right ventricular wall thickness. The right ventricular systolic function is normal. ATRIA The left atrium is moderately dilated. The right atrium is mildly dilated. AORTIC VALVE The aortic valve is mildly thickened. MITRAL VALVE The mitral valve is moderately thickened. Mitral regurgitation is mild to moderate. TRICUSPID VALVE There is moderate tricuspid regurgitation. There is moderate pulmonary hypertension. GREAT VESSELS The aortic root is normal in size. The IVC is normal in size and collapses >50% with inspiration. <Conclusion> The left ventricle is normal size. There is normal left ventricular wall thickness. The left ventricular function is normal. The left ventricular ejection fraction is within the normal range. There is normal LV segmental wall motion. The left ventricular diastolic function is normal. Mitral regurgitation is mild to moderate. There is moderate tricuspid regurgitation. There is moderate pulmonary hypertension.
[2017-03-22 16:33] VITALS: RESP 20
--- NOTE | 2017-03-22 19:28 | PN ---
DATE: 03/22/2017 Seen and examined at the bedside earlier this afternoon. The patient denies any nausea, vomiting, or abdominal pain. He is tolerating oral intake. The patient complains of blood per rectum after a jaja wel movement and had episode of nosebleed. VITAL SIGNS: Temperature is 97.6, blood pressure is 120/60, pulse is 89, respirations 20, 98 on room air. LABORATORY DATA: WBC is 2.7, H and H is 8.1 and 24.1, platelets are 43, the manual is 60. PT is 19. 4, INR is 1.80. Chem: Sodium is 137. His K is 3.4, BUN is 10, creatinine is 0.8. Total bilirubin 3.6, AST 55, ALT 38, alkaline phosphatase is 84. The patient had stool guaiac positive. PHYSICAL EXAMINATION: HEENT: Sclerae are anicteric. NECK: Supple. CARDIAC: S1, S2. LUNGS: Clear. ABDOMEN: With bowel sounds, soft, nontender. EXTREMITIES: He does have positive bilateral edema. NEUROLOGIC: Awake, alert, oriented. ASSESSMENT: A 57-year-old male with history of ETOH abuse, came with bilateral lower extremity swell ing, likely secondary to liver failure. The patient with thrombocytopenia. He did have an abdominal ultrasound showing splenomegaly and cirrhosis of the liver as well as cholelithiasis. The patient w ith anemia, hypokalemia. PLAN: The patient received 1 unit of platelets. Observe for any overt GI bleed. Monitor H and H. T he patient is on Aldactone and Lasix. Continue GI prophylaxis, Pepcid. Will continue to follow clos tanvir. The patient may benefit from GI workup when optimal. The patient was seen and case discussed w darshan Russo. Courtney MCNEIL cc: [phone] TT: 03/22/2017 19:28:22 Confirmation # [id number] Dictation # [id number] caleb
--- NOTE | 2017-03-22 22:17 | CP.PCM.CON ---
History of Present Illness - History of Present Illness History of Present Illness: Hematology Consult Referred by Dr. Muniz for pancytopenia HPI-Mr Chung is 57 y/o M with h/o alcohol abuse, chronic liver disease who was admitted with bilateral leg swelling and shortness of breath with exertion. Also complains of abdominal pain and intermittent nose bleed. On admission, he was found to be pancytopenic with WBC 3.3, Hb 8.2 and platelet count of 48. Platelet count today is 43 with manual platelet count of 60. Other labs significant for liver dysfunction and coagulopathy. US abdomen showed liver cirrhosis with splenomegaly and moderate perihepatic ascites. He feels better in terms of SOB and swelling after diuresis. He was found to have a minor episode of rectal bleed in hospital and stool ocult was found to be positive. He has received one unit platelet count so far. Family and Social history reviewed. Review of Systems - Review of Systems All systems: reviewed and no additional remarkable complaints except Review of Systems: as in HPI Past Patient History - Past Social History Smoking Status: Never Smoked - CARDIAC Hx Cardiac Disorders: No - PULMONARY Hx Respiratory Disorders: No - NEUROLOGICAL Hx Neurological Disorder: No - HEENT Hx HEENT Problems: No - ENDOCRINE/METABOLIC Hx Endocrine Disorders: No - HEMATOLOGICAL/ONCOLOGICAL Hx Blood Disorders: Yes Hx Anemia: Yes Other/Comment: HG 8.2 - INTEGUMENTARY Hx Dermatological Problems: No - MUSCULOSKELETAL/RHEUMATOLOGICAL Hx Musculoskeletal Disorders: No - GASTROINTESTINAL Hx Gastrointestinal Disorders: Yes Hx Gall Bladder Disease: Yes Other/Comment: Cirrhosis of liver - GENITOURINARY/GYNECOLOGICAL Hx Genitourinary Disorders: No - PSYCHIATRIC Hx Psychophysiologic Disorder: No - SURGICAL HISTORY Hx Surgeries: No Meds Allergies/Adverse Reactions: Allergies Allergy/AdvReac Type Severity Reaction Status Date / Time No Known Allergies Allergy Verified 03/21/17 10:38 - Medications Medications: Current Medications Famotidine (Pepcid) 40 mg PO HS [facility] Last Admin: 03/21/17 21:35 Dose: 40 mg Furosemide (Lasix) 60 mg IVP Q12 [facility] Guaifenesin/Dextromethorphan (Robitussin Dm) 5 ml PO Q4H PRN PRN Reason: Cough Spironolactone (Aldactone) 50 mg PO BID [facility] Last Admin: 03/22/17 12:07 Dose: 50 mg Physical Exam - Head Exam Head Exam: ATRAUMATIC, NORMAL INSPECTION - Eye Exam Eye Exam: EOMI, PERRL, Scleral icterus - ENT Exam ENT Exam: Mucous Membranes Moist - Respiratory Exam Respiratory Exam: Clear to Auscultation Bilateral - Cardiovascular Exam Cardiovascular Exam: REGULAR RHYTHM - GI/Abdominal Exam GI & Abdominal Exam: Normal Bowel Sounds, Organomegaly, Soft. absent: Tenderness - Extremities Exam Extremities exam: Positive for: pedal edema Results - Vital Signs Recent Vital Signs: Last Vital Signs Temp 98.7 F 03/22/17 16:33 Pulse 84 03/22/17 16:33 Resp 20 03/22/17 16:33 BP 118/66 03/22/17 16:33 Pulse Ox 99 03/22/17 16:00 - Labs Result Diagrams: 03/22/17 06:30 03/22/17 06:30 Labs: Laboratory Results - last 24 hr 03/21/17 03/21/17 03/21/17 15:00 15:00 15:00 WBC RBC Hgb Hct MCV MCH MCHC RDW Plt Count Manual Plt Count MPV Gran % Lymph % (Auto) Gonzales % (Auto) Eos % (Auto) Baso % (Auto) Gran # Lymph # Gonzales # Eos # Baso # PT INR Sodium Potassium Chloride Carbon Dioxide Anion Gap BUN Creatinine Est GFR ( Amer) Est GFR (Non-Af Amer) Random Glucose Calcium Total Bilirubin AST ALT Alkaline Phosphatase Total Protein Albumin Globulin Albumin/Globulin Ratio Vitamin B12 845 Folate 10.5 Stool Occult Blood Urine Opiates Screen Urine Methadone Screen Ur Barbiturates Screen Ur Phencyclidine Scrn Ur Amphetamines Screen U Benzodiazepines Scrn U Oth Cocaine Metabols U Cannabinoids Screen Hepatitis C Antibody Negative HIV 1&2 Ag/Ab, 4th Gen Nonreactive Blood Type Blood Type Confirm Antibody Screen BBK History Checked 03/22/17 03/22/17 03/22/17 06:30 06:30 06:30 WBC 2.7 L* RBC 2.66 L Hgb 8.1 L Hct 24.1 L MCV 90.6 MCH 30.5 MCHC 33.6 RDW 15.2 H Plt Count 43 L* Manual Plt Count MPV 10.0 Gran % 64.9 Lymph % (Auto) 23.3 Gonzales % (Auto) 8.1 H Eos % (Auto) 3.7 Baso % (Auto) 0.0 Gran # 1.75 Lymph # 0.6 L Gonzales # 0.2 Eos # 0.1 Baso # 0.00 PT 19.4 H INR 1.80 H Sodium 137 Potassium 3.4 L Chloride 102 Carbon Dioxide 30 Anion Gap 8 L BUN 10 Creatinine 0.8 Est GFR ( Amer) > 60 Est GFR (Non-Af Amer) > 60 Random Glucose 84 Calcium 7.3 L Total Bilirubin 3.6 H AST 55 ALT 38 Alkaline Phosphatase 84 Total Protein 7.0 Albumin 2.1 L Globulin 4.9 Albumin/Globulin Ratio 0.4 L Vitamin B12 Folate Stool Occult Blood Urine Opiates Screen Urine Methadone Screen Ur Barbiturates Screen Ur Phencyclidine Scrn Ur Amphetamines Screen U Benzodiazepines Scrn U Oth Cocaine Metabols U Cannabinoids Screen Hepatitis C Antibody HIV 1&2 Ag/Ab, 4th Gen Blood Type Blood Type Confirm Antibody Screen BBK History Checked 03/22/17 03/22/17 03/22/17 06:30 09:00 10:53 WBC RBC Hgb Hct MCV MCH MCHC RDW Plt Count Manual Plt Count 60 L* MPV Gran % Lymph % (Auto) Gonzales % (Auto) Eos % (Auto) Baso % (Auto) Gran # Lymph # Gonzales # Eos # Baso # PT INR Sodium Potassium Chloride Carbon Dioxide Anion Gap BUN Creatinine Est GFR ( Amer) Est GFR (Non-Af Amer) Random Glucose Calcium Total Bilirubin AST ALT Alkaline Phosphatase Total Protein Albumin Globulin Albumin/Globulin Ratio Vitamin B12 Folate Stool Occult Blood Urine Opiates Screen Negative Urine Methadone Screen Negative Ur Barbiturates Screen Negative Ur Phencyclidine Scrn Negative Ur Amphetamines Screen Negative U Benzodiazepines Scrn Negative U Oth Cocaine Metabols Negative U Cannabinoids Screen Negative Hepatitis C Antibody HIV 1&2 Ag/Ab, 4th Gen Blood Type A POSITIVE Blood Type Confirm Antibody Screen Negative BBK History Checked No verified bt 03/22/17 03/22/17 10:56 12:49 WBC RBC Hgb Hct MCV MCH MCHC RDW Plt Count Manual Plt Count MPV Gran % Lymph % (Auto) Gonzales % (Auto) Eos % (Auto) Baso % (Auto) Gran # Lymph # Gonzales # Eos # Baso # PT INR Sodium Potassium Chloride Carbon Dioxide Anion Gap BUN Creatinine Est GFR ( Amer) Est GFR (Non-Af Amer) Random Glucose Calcium Total Bilirubin AST ALT Alkaline Phosphatase Total Protein Albumin Globulin Albumin/Globulin Ratio Vitamin B12 Folate Stool Occult Blood Positive H Urine Opiates Screen Urine Methadone Screen Ur Barbiturates Screen Ur Phencyclidine Scrn Ur Amphetamines Screen U Benzodiazepines Scrn U Oth Cocaine Metabols U Cannabinoids Screen Hepatitis C Antibody HIV 1&2 Ag/Ab, 4th Gen Blood Type Blood Type Confirm A POSITIVE Antibody Screen BBK History Checked Assessment & Plan - Assessment and Plan (Free Text) Assessment: Pancytopenia h/o liver cirrhosis I do not have any prior blood counts but his history is significant for severe alcohol induced liver cirrhosis with splenomegaly. This is likely the cause of low blood counts. Will need to monitor blood counts to trend. US abdomen did not show any liver mass. Continue to monitor with AFP/ US liver every 6-12 months to screen for hepatoma. If his blood counts decrease significantly, we could consider bone marrow aspiration/ biopsy to rule out hematological malignancy. Continue supportive transfusions prn. GI consult. Evaluate source of GI bleed. Thank you for the consult Abdulaziz Miller - Date & Time Date: 03/22/17 Time: 15:17
[2017-03-23 08:03] LABS: EOS # 0.1 (0.0-0.7); EOS % 3.8 % (1.5-5.0); GRAN # 1.68 (1.4-6.5); GRAN % 63.6 % (50.0-68.0); HEMATOCRIT 24.3 % (42.0-52.0); LYMPH # 0.6 (1.2-3.4); LYMPH % 23.5 % (22.0-35.0); MEAN CORPUSCULAR HEMOGLOBIN 30.3 pg (25.0-35.0); MEAN CORPUSCULAR HGB CONC 33.3 g/dl (31.0-37.0); MONO # 0.2 (0.1-0.6); MONO % 9.1 % (1.0-6.0); PLATELET COUNT 50 10^3/uL (120.0-450.0); RED CELL DISTRIBUTION WIDTH 15.1 % (11.5-14.5)
[2017-03-23 08:13] LABS: ADD MANUAL DIFF? NO; ALB/GLOB RATIO 0.4 (1.1-1.8); ALKALINE PHOSPHATASE 74 U/L (38-133); ALT/SGPT 39 U/L (7-56); AST/SGOT 52 U/L (15-59); BILIRUBIN,TOTAL 3.6 mg/dL (0.2-1.3); BLOOD UREA NITROGEN 10 mg/dL (7-21); CALCIUM 7.6 mg/dL (8.4-10.5); CARBON DIOXIDE 32 mmol/L (21-33); CHLORIDE 103 mmol/L (98-107); GFR AFRICAN-AMERICAN > 60; GLUCOSE,RANDOM 85 mg/dL (70-110); POTASSIUM 3.8 mmol/L (3.6-5.0); SODIUM 137 mmol/L (132-148); TOTAL PROTEIN 6.9 g/dL (5.8-8.3); WHITE BLOOD COUNT 2.6 10^3/ul (4.5-11.0)
[2017-03-23 08:21] LABS: INR 1.71 (0.93-1.08)
[2017-03-23 08:38] VITALS: BP 119/73; PULSE 86; TEMP 98.1; O2SAT 98
--- NOTE | 2017-03-23 15:06 | CP.PCM.DIS ---
<[place] - Last Filed: 03/23/17 14:50> Provider - Provider Date of Admission: 03/21/17 13:25 Attending physician: Jose Lobo MD Consults: Gastroeneterology, Heme onc Time Spent in preparation of Discharge (in minutes): 45 Diagnosis - Discharge Diagnosis (1) Liver failure Status: Acute (2) Pancytopenia Status: Acute Hospital Course - Lab Results Lab Results: Most Recent Lab Values WBC 2.6 10^3/ul (4.5-11.0) L* 03/23/17 07:30 RBC 2.67 10^6/uL (3.5-6.1) L 03/23/17 07:30 Hgb 8.1 gm/dL (14.0-18.0) L 03/23/17 07:30 Hct 24.3 % (42.0-52.0) L 03/23/17 07:30 MCV 91.0 fL (80.0-105.0) 03/23/17 07:30 MCH 30.3 pg (25.0-35.0) 03/23/17 07:30 MCHC 33.3 g/dl (31.0-37.0) 03/23/17 07:30 RDW 15.1 % (11.5-14.5) H 03/23/17 07:30 Plt Count 50 10^3/uL (120.0-450.0) L 03/23/17 07:30 Manual Plt Count 65 K/mm3 (120-450) L* 03/23/17 07:30 MPV 11.0 fl (7.0-11.0) 03/23/17 07:30 Gran % 63.6 % (50.0-68.0) 03/23/17 07:30 Lymph % (Auto) 23.5 % (22.0-35.0) 03/23/17 07:30 [place] % (Auto) 9.1 % (1.0-6.0) H 03/23/17 07:30 Eos % (Auto) 3.8 % (1.5-5.0) 03/23/17 07:30 Baso % (Auto) 0.0 % (0.0-3.0) 03/23/17 07:30 Gran # 1.68 (1.4-6.5) 03/23/17 07:30 Lymph # 0.6 (1.2-3.4) L 03/23/17 07:30 [place] # 0.2 (0.1-0.6) 03/23/17 07:30 Eos # 0.1 (0.0-0.7) 03/23/17 07:30 Baso # 0.00 K/mm3 (0.0-2.0) 03/23/17 07:30 PT 18.5 Seconds (9.9-11.8) H 03/23/17 07:30 INR 1.71 (0.93-1.08) H 03/23/17 07:30 APTT 34.9 Seconds (23.7-30.8) H 03/21/17 11:20 Sodium 137 mmol/L (132-148) 03/23/17 07:30 Potassium 3.8 mmol/L (3.6-5.0) 03/23/17 07:30 Chloride 103 mmol/L (98-107) 03/23/17 07:30 Carbon Dioxide 32 mmol/L (21-33) 03/23/17 07:30 Anion Gap 6 (10-20) L 03/23/17 07:30 BUN 10 mg/dL (7-21) 03/23/17 07:30 Creatinine 0.8 mg/dL (0.5-1.4) 03/23/17 07:30 Est GFR ( Amer) > 60 03/23/17 07:30 Est GFR (Non-Af Amer) > 60 03/23/17 07:30 Random Glucose 85 mg/dL (70-110) 03/23/17 07:30 Calcium 7.6 mg/dL (8.4-10.5) L 03/23/17 07:30 Iron 96 ug/dL (45-180) 03/21/17 15:00 TIBC 251 ug/dL (261-462) L 03/21/17 15:00 % Saturation 38 % (20-55) 03/21/17 15:00 Ferritin 311.0 ng/mL 03/21/17 15:00 Total Bilirubin 3.6 mg/dL (0.2-1.3) H 03/23/17 07:30 AST 52 U/L (15-59) 03/23/17 07:30 ALT 39 U/L (7-56) 03/23/17 07:30 Alkaline Phosphatase 74 U/L (38-133) 03/23/17 07:30 NT-Pro-B Natriuret Pep 297 pg/mL (0-450) 03/21/17 11:20 Total Protein 6.9 g/dL (5.8-8.3) 03/23/17 07:30 Albumin 2.1 g/dL (3.0-4.8) L 03/23/17 07:30 Globulin 4.9 gm/dL 03/23/17 07:30 Albumin/Globulin Ratio 0.4 (1.1-1.8) L 03/23/17 07:30 Vitamin B12 845 pg/mL (239-931) 03/21/17 15:00 Folate 10.5 ng/mL 03/21/17 15:00 Urine Color Yellow (YELLOW) 03/21/17 15:20 Urine Appearance Clear (CLEAR) 03/21/17 15:20 Urine pH 6.0 (4.7-8.0) 03/21/17 15:20 Ur Specific [place] 1.020 (1.005-1.035) 03/21/17 15:20 Urine Protein Negative mg/dL (<30 mg/dL) 03/21/17 15:20 Urine Glucose (UA) Negative mg/dL (NEGATIVE) 03/21/17 15:20 Urine Ketones Negative mg/dL (NEGATIVE) 03/21/17 15:20 Urine Blood Large (NEGATIVE) H 03/21/17 15:20 Urine Nitrate Negative (NEGATIVE) 03/21/17 15:20 Urine Bilirubin Negative (NEGATIVE) 03/21/17 15:20 Urine Urobilinogen 2.0 E.U./dL (<1 E.U./dL) H 03/21/17 15:20 Ur Leukocyte Esterase Negative Bernard/uL (NEGATIVE) 03/21/17 15:20 Urine RBC 15 - 20 /hpf (0-2) 03/21/17 15:20 Urine WBC 0 - 2 /hpf (0-6) 03/21/17 15:20 Ur Epithelial Cells 0 - 2 /hpf (0-5) 03/21/17 15:20 Urine Bacteria Small (NEG) 03/21/17 15:20 Stool Occult Blood Positive (NEGATIVE) H 03/22/17 10:56 Urine Opiates Screen Negative (NEGATIVE) 03/22/17 09:00 Urine Methadone Screen Negative (NEGATIVE) 03/22/17 09:00 Ur Barbiturates Screen Negative (NEGATIVE) 03/22/17 09:00 Ur Phencyclidine Scrn Negative (NEGATIVE) 03/22/17 09:00 Ur Amphetamines Screen Negative (NEGATIVE) 03/22/17 09:00 U Benzodiazepines Scrn Negative (NEGATIVE) 03/22/17 09:00 U Oth Cocaine Metabols Negative (NEGATIVE) 03/22/17 09:00 U Cannabinoids Screen Negative (NEGATIVE) 03/22/17 09:00 Hepatitis A IgM Ab Negative (NEGATIVE) 03/21/17 15:00 Hep Bs Antigen Negative (NEGATIVE) 03/21/17 15:00 Hep B Core IgM Ab Negative (NEGATIVE) 03/21/17 15:00 Hepatitis C Antibody Negative (NEGATIVE) 03/21/17 15:00 HIV 1&2 Ag/Ab, 4th Gen Nonreactive (Nonreactive) 03/21/17 15:00 Blood Type A POSITIVE 03/22/17 10:53 Blood Type Confirm A POSITIVE 03/22/17 12:49 Antibody Screen Negative 03/22/17 10:53 BBK History Checked No verified bt 03/22/17 10:53 - Hospital Course Hospital Course: 57 M with pmh significant for of ETOH abuse presents with b/l leg swelling for the past few weeks. In the ED the basic lab work was done. Pt was found to be pancytopenic with INR 1.8, PT 19.4, Platelet of 43, T bili 3.6, Albumin 2.1. He had a normal BNP. CXR showed no active disease. An Abdominal US showed cirrhosis of liver, severe splenomegally, mod perihepatic ascites, cholethiasis. US of b/l lower US was negative for any DVTs. Pt was admitted for Liver failure and Pancytopenia. Lasix 40mg BID was started. Gastroenterology and Heme/Onc were consulted. Hepatitis profile and HIV was negative. Patient had episodes of nose bleed and one bright red blood per rectum. 1 unit of platelets were transfused. Heme/onc recommended to follow up with AFP/ US every 6-12 months to screen for hepatoma. We increased Lasix to 60mg BID IVP and added Aldactone 50mg BID. An Echo of the heart showed normal EF, mod TR, MR, and mod Pulmonary HTN. GI recommended outpatient followup. Today pt was seen and examined at bedside. He is feeling much better. His lower extremity edema has improved. No complaints at this time. I explained to him through a brake repairer hydraulic in great detail the extent of his liver failure and the importance of following up with the gastroeneterologist & following up at the liver clinic in [facility]. He verbalized understanding. Discharge Exam - Head Exam Head Exam: ATRAUMATIC, NORMAL INSPECTION - Eye Exam Eye Exam: EOMI, Normal appearance, PERRL - ENT Exam ENT Exam: Mucous Membranes Moist - Respiratory Exam Respiratory Exam: Clear to PA & Lateral. absent: Rales, Wheezes - Cardiovascular Exam Cardiovascular Exam: REGULAR RHYTHM, RRR, +S1, +S2 - GI/Abdominal Exam GI & Abdominal Exam: Soft. absent: Distended, Tenderness - Extremities Exam Additional comments: b/l feet: 1-2 + edema; no calf tenderness - Neurological Exam Neurological exam: Alert, CN II-XII Intact, Normal Gait, Oriented x3, Reflexes Normal - Psychiatric Exam Psychiatric exam: Normal Affect, Normal Mood - Skin Skin Exam: Dry, Intact, Normal Color, Warm Discharge Plan - Discharge Medications Prescriptions: Famotidine [Pepcid] 40 mg PO HS #60 tab Furosemide [Lasix] 40 mg PO BID #60 tab Spironolactone [Aldactone] 50 mg PO BID #60 tab - Follow Up Plan Condition: FAIR Instructions: Thrombocytopenia (DC) Additional Instructions: Please follow up with you primary care physician with in 1 week. Follow up with [facility] clinic ask for liver clinic. Follow up with Gastroenterology Dr Russo at . For any sort of active bleeding come back to the closest ED. Take your medication as prescribed. Referrals: Binh Russo MD [Medical Doctor] - Carlos Mata MD [Staff Provider] - <Jose Lobo - Last Filed: 03/23/17 17:35> Provider - Provider Date of Admission: 03/21/17 13:25 Attending physician: Jose Lobo MD Hospital Course - Lab Results Lab Results: Most Recent Lab Values WBC 2.6 10^3/ul (4.5-11.0) L* 03/23/17 07:30 RBC 2.67 10^6/uL (3.5-6.1) L 03/23/17 07:30 Hgb 8.1 gm/dL (14.0-18.0) L 03/23/17 07:30 Hct 24.3 % (42.0-52.0) L 03/23/17 07:30 MCV 91.0 fL (80.0-105.0) 03/23/17 07:30 MCH 30.3 pg (25.0-35.0) 03/23/17 07:30 MCHC 33.3 g/dl (31.0-37.0) 03/23/17 07:30 RDW 15.1 % (11.5-14.5) H 03/23/17 07:30 Plt Count 50 10^3/uL (120.0-450.0) L 03/23/17 07:30 Manual Plt Count 65 K/mm3 (120-450) L* 03/23/17 07:30 MPV 11.0 fl (7.0-11.0) 03/23/17 07:30 Gran % 63.6 % (50.0-68.0) 03/23/17 07:30 Lymph % (Auto) 23.5 % (22.0-35.0) 03/23/17 07:30 [place] % (Auto) 9.1 % (1.0-6.0) H 03/23/17 07:30 Eos % (Auto) 3.8 % (1.5-5.0) 03/23/17 07:30 Baso % (Auto) 0.0 % (0.0-3.0) 03/23/17 07:30 Gran # 1.68 (1.4-6.5) 03/23/17 07:30 Lymph # 0.6 (1.2-3.4) L 03/23/17 07:30 [place] # 0.2 (0.1-0.6) 03/23/17 07:30 Eos # 0.1 (0.0-0.7) 03/23/17 07:30 Baso # 0.00 K/mm3 (0.0-2.0) 03/23/17 07:30 PT 18.5 Seconds (9.9-11.8) H 03/23/17 07:30 INR 1.71 (0.93-1.08) H 03/23/17 07:30 APTT 34.9 Seconds (23.7-30.8) H 03/21/17 11:20 Sodium 137 mmol/L (132-148) 03/23/17 07:30 Potassium 3.8 mmol/L (3.6-5.0) 03/23/17 07:30 Chloride 103 mmol/L (98-107) 03/23/17 07:30 Carbon Dioxide 32 mmol/L (21-33) 03/23/17 07:30 Anion Gap 6 (10-20) L 03/23/17 07:30 BUN 10 mg/dL (7-21) 03/23/17 07:30 Creatinine 0.8 mg/dL (0.5-1.4) 03/23/17 07:30 Est GFR ( Amer) > 60 03/23/17 07:30 Est GFR (Non-Af Amer) > 60 03/23/17 07:30 Random Glucose 85 mg/dL (70-110) 03/23/17 07:30 Calcium 7.6 mg/dL (8.4-10.5) L 03/23/17 07:30 Iron 96 ug/dL (45-180) 03/21/17 15:00 TIBC 251 ug/dL (261-462) L 03/21/17 15:00 % Saturation 38 % (20-55) 03/21/17 15:00 Ferritin 311.0 ng/mL 03/21/17 15:00 Total Bilirubin 3.6 mg/dL (0.2-1.3) H 03/23/17 07:30 AST 52 U/L (15-59) 03/23/17 07:30 ALT 39 U/L (7-56) 03/23/17 07:30 Alkaline Phosphatase 74 U/L (38-133) 03/23/17 07:30 NT-Pro-B Natriuret Pep 297 pg/mL (0-450) 03/21/17 11:20 Total Protein 6.9 g/dL (5.8-8.3) 03/23/17 07:30 Albumin 2.1 g/dL (3.0-4.8) L 03/23/17 07:30 Globulin 4.9 gm/dL 03/23/17 07:30 Albumin/Globulin Ratio 0.4 (1.1-1.8) L 03/23/17 07:30 Vitamin B12 845 pg/mL (239-931) 03/21/17 15:00 Folate 10.5 ng/mL 03/21/17 15:00 Urine Color Yellow (YELLOW) 03/21/17 15:20 Urine Appearance Clear (CLEAR) 03/21/17 15:20 Urine pH 6.0 (4.7-8.0) 03/21/17 15:20 Ur Specific [place] 1.020 (1.005-1.035) 03/21/17 15:20 Urine Protein Negative mg/dL (<30 mg/dL) 03/21/17 15:20 Urine Glucose (UA) Negative mg/dL (NEGATIVE) 03/21/17 15:20 Urine Ketones Negative mg/dL (NEGATIVE) 03/21/17 15:20 Urine Blood Large (NEGATIVE) H 03/21/17 15:20 Urine Nitrate Negative (NEGATIVE) 03/21/17 15:20 Urine Bilirubin Negative (NEGATIVE) 03/21/17 15:20 Urine Urobilinogen 2.0 E.U./dL (<1 E.U./dL) H 03/21/17 15:20 Ur Leukocyte Esterase Negative Bernard/uL (NEGATIVE) 03/21/17 15:20 Urine RBC 15 - 20 /hpf (0-2) 03/21/17 15:20 Urine WBC 0 - 2 /hpf (0-6) 03/21/17 15:20 Ur Epithelial Cells 0 - 2 /hpf (0-5) 03/21/17 15:20 Urine Bacteria Small (NEG) 03/21/17 15:20 Stool Occult Blood Positive (NEGATIVE) H 03/22/17 10:56 Urine Opiates Screen Negative (NEGATIVE) 03/22/17 09:00 Urine Methadone Screen Negative (NEGATIVE) 03/22/17 09:00 Ur Barbiturates Screen Negative (NEGATIVE) 03/22/17 09:00 Ur Phencyclidine Scrn Negative (NEGATIVE) 03/22/17 09:00 Ur Amphetamines Screen Negative (NEGATIVE) 03/22/17 09:00 U Benzodiazepines Scrn Negative (NEGATIVE) 03/22/17 09:00 U Oth Cocaine Metabols Negative (NEGATIVE) 03/22/17 09:00 U Cannabinoids Screen Negative (NEGATIVE) 03/22/17 09:00 Hepatitis A IgM Ab Negative (NEGATIVE) 03/21/17 15:00 Hep Bs Antigen Negative (NEGATIVE) 03/21/17 15:00 Hep B Core IgM Ab Negative (NEGATIVE) 03/21/17 15:00 Hepatitis C Antibody Negative (NEGATIVE) 03/21/17 15:00 HIV 1&2 Ag/Ab, 4th Gen Nonreactive (Nonreactive) 03/21/17 15:00 Blood Type A POSITIVE 03/22/17 10:53 Blood Type Confirm A POSITIVE 03/22/17 12:49 Antibody Screen Negative 03/22/17 10:53 BBK History Checked No verified bt 03/22/17 10:53 Attending/Attestation - Attestation I have personally seen and examined this patient.: Yes I have fully participated in the care of the patient.: Yes I have reviewed all pertinent clinical information, including history, physical exam and plan: Yes Notes (Text): 03/23/17 17:32 attending note; Patient seen and examined with resident. Denies any bleeding. Patient is a 57 year old male with pmh of ETOH abuse,, liver problem presents with b/l leg swelling secondary to advanced alcoholic cirrhosis. Started on Lasix and Aldactone. Abdominal ultrasound showed cirrhosis and splenomegaly and moderate perihepatic ascites. Hepatitis profile is negative. GI evaluation Appreciated. Thrombocytopenia; Patient had episode of epistaxis. 1 unit of platelet transfusion given. Hematology evaluation appreciated. Lower extremity Doppler is negative for DVT. Complete alcohol cessation is strongly advised. Patient is strongly advised to follow-up with [facility] liver transplant clinic. Information given. patient needs to stop alcohol abuse before liver transplantation evaluation. The diagnosis, treatment plan discussed with patient's daughter in detail. patient will follow-up with PMD of choice. Patient Will follow-up with [email or web address]. diagnosis; Advanced liver cirrhosis alcohol abuse Coagulopathy Pancytopenia
--- NOTE | 2017-03-23 17:19 | PN ---
DATE: 03/23/2017 Seen and examined at the bedside earlier today. He was out of bed in the chair. He denies any epist axis. He did have bowel movement. No bleeding. Denies abdominal pain. He is tolerating the oral i ntake. No reports of nausea or vomiting. VITAL SIGNS: Temperature is 98.1, blood pressure 119/73, pulse 86, respirations 20, 98% room air. LABORATORIES: WBC 2.6, H and H is 8.1 and 24.3, his platelet is 50, the manual is 65. PT is 18.5, I NR is 1.71. Sodium 137, K 3.8, BUN is 10, creatinine is 0.8. Total bilirubin is 3.6, AST 52, ALT 39 , alkaline phosphatase is 74. PHYSICAL EXAMINATION: HEENT: Sclera is anicteric. NECK: Supple. CARDIAC: S1, S2. LUNGS: With decreased breath sounds, but good air entry. ABDOMEN: With bowel sounds, soft, it is not tender. EXTREMITIES: Positive bilateral edema. NEUROLOGIC: Awake and alert. ASSESSMENT: A 57-year-old male with history of ethyl alcohol abuse, came with bilateral leg swelling . The patient was found to be pancytopenic, had ultrasound done showing cirrhosis of the liver as we ll as splenomegaly and ascites and gallstones. The patient also with anemia, had episode of epistaxi s and bleeding per rectum, status post platelets. PLAN: This patient is to follow up at the Liver Clinic at [facility]. Discussed with Dr. Russo. The patient would benefit from GI workup, can do electively outpatient when patient's platelets are impro ving. The patient will follow up in our outpatient office. The patient will be discharged home on P epcid, Lasix and Aldactone. The patient was seen and case discussed with Dr. Russo. Courtney MCNEIL cc: [id number] TT: 03/23/2017 17:19:00 Confirmation # [id number] Dictation # [id number]
== END 2017-03-23 17:38 | disposition home or self-care (01) ==
LOC: ED 10:23 → INTOOBSV 13:25 → MERGE 13:25 → ERH 13:25 → 5RSO 15:53 → UNDODISIN 03-23 15:34
PROVIDERS: ADMIT Internal Medicine; ATTEND Internal Medicine
DX: K70.31 Alcoholic cirrhosis of liver with ascites (principal); D61.818 Other pancytopenia; K70.40 Alcoholic hepatic failure without coma; D68.9 Coagulation defect, unspecified; I27.2 Other secondary pulmonary hypertension; R16.1 Splenomegaly, not elsewhere classified; K62.5 Hemorrhage of anus and rectum; I10 Essential (primary) hypertension; F10.10 Alcohol abuse, uncomplicated; E87.6 Hypokalemia; R04.0 Epistaxis; K80.20 Calculus of gallbladder without cholecystitis without obstruction; Z82.49 Family history of ischemic heart disease and other diseases of the circulatory system
CPT/HCPCS: 36415; 36430; 71010; 76700; 80053; 80074; 81001; 82607; 82728; 82746; 83540; 83550; 83880; 85025; 85610; 85730; 86850; 86900; 93005; 93306; 93970; 96374; 96376; 99284; G0328; G0378; G0480; J1940; J3480; P9035